=== PATIENT | male | born 1935 | race Caucasian/White ===

== ENCOUNTER 2017-11-03 07:03 | Emergency (ER) | payer MEDICARE ==
[2017-11-03 07:40] VITALS: BP 139/61
--- NOTE | 2017-11-03 07:51 | UC ---
FLU HPI - HPI Summary HPI Summary: 82 year old male with cough. Patient seen by PCP saturday for cough, nothing prescribed at the time. States continues to have a cough and headache. here with who is (+) flu A but his sx started a few days before hers [ End ] - History of Current Complaint Chief Complaint: UCRespiratory Stated Complaint: HEADACHE, COUGH, STOMACH ACHE Time Seen by Provider: 11/03/17 07:43 Hx Obtained From: Patient, Family/Police Chief Deputy Onset/Duration: Gradual Onset Severity Currently: Mild Pain Intensity: 5 Associated Signs & Symptoms: Positive: Negative, Cough, Headache - Allergy/Home Medications Allergies/Adverse Reactions: Allergies Allergy/AdvReac Type Severity Reaction Status Date / Time amitriptyline Allergy Unknown Verified 11/03/17 07:45 Reaction Details amoxicillin Allergy Itching Verified 11/03/17 07:45 gabapentin Allergy Hallucinati Verified 11/03/17 07:45 ons nortriptyline Allergy GI Upset Verified 11/03/17 07:45 Home Medications: Home Medications Antiarthritic Combination No.2 [Glucosamine Chondroitin D] 1 tab PO DAILY [History Confirmed 11/03/17] Cholecalciferol (Vitamin D3) [Vitamin D3] 1,000 unit PO DAILY 11/03/17 [History Confirmed 11/03/17] Finasteride TAB* [Proscar TAB*] 5 mg PO DAILY 11/03/17 [History Confirmed ] Lisinopril/HCTZ 10/12.5(NF) [Zestoretic 10/12.5(NF)] 1 tab PO DAILY 11/03/17 [ History Confirmed 11/03/17] Metoprolol Tartrate TAB* [Lopressor TAB*] 12.5 mg PO BID 11/03/17 [History Confirmed 11/03/17] Thiamine TAB* [Vitamin B-1 TAB*] 100 mg PO DAILY 11/03/17 [History Confirmed 12/18] amLODIPine TAB* [Norvasc 5 mg TAB*] 10 mg PO DAILY 11/03/17 [History Confirmed 11/03/17] tiZANidine TAB* [Zanaflex TAB*] 2 mg PO TID 11/03/17 [History Confirmed 11/03/17 ] PMH/Surg Hx/FS Hx/Imm Hx Previously Healthy: Yes Endocrine History: Dyslipidemia Cardiovascular History: Hypertension - Surgical History Surgical History: Yes Surgery Procedure, Year, and Place: 1961 RIGHT BELOW KNEE AMPUTATION R.\/ T LOGGING ACCIDENT, [facility]. 2010 LEFT HYDORCE[place] [facility] [place] [facility] [place]. 2010 CAUTERIZATION OF NOSE FOR NOSE BLEEDS [facility]. 1988 LITHOTRIPSY FOR KIDNEY STONE, [place]. 2009 DOUBLE HERNIA - Family History Known Family History: Positive: None - Social History Occupation: Retired Lives: With Family Alcohol Use: None Substance Use Type: None Smoking Status (MU): Never Smoked Tobacco Review of Systems Constitutional: Fatigue ENT: Nasal Discharge, Sinus Congestion Respiratory: Cough Musculoskeletal: Arthralgia Neurological: Headache Is Patient Immunocompromised?: No All Other Systems Reviewed And Are Negative: Yes Physical Exam Triage Information Reviewed: Yes Appearance: Well-Appearing, No Pain Distress, Well-Nourished, Ill-Appearing Vital Signs: Initial Vital Signs Temp 98.3 F 11/03/17 07:35 Pulse 71 11/03/17 07:35 Resp 18 11/03/17 07:35 BP 139/61 11/03/17 07:35 Pulse Ox 96 11/03/17 07:35 Vital Signs Reviewed: Yes Eye Exam: Normal ENT Exam: Normal Dental Exam: Normal Neck exam: Normal Neck: Positive: 1 Respiratory Exam: Normal Cardiovascular Exam: Normal Musculoskeletal Exam: Normal Neurological Exam: Normal Psychological Exam: Normal Skin Exam: Normal Flu Course/Dx - Course Course Of Treatment: with Flu A here -- his sx present for > 48 hours. xray shows NAD. supportive care. to go to ED if sx worsen. desires cough med for night time - Differential Dx/Diagnosis Differential Diagnosis/HQI/PQRI: Influenza, Upper Respiratory Infection Provider Diagnoses: Influenza Discharge - Discharge Plan Condition: Good Disposition: HOME Referrals: Alex Berkowitz MD [Primary Care Provider] -
--- NOTE | 2017-11-03 08:12 | RAD ---
INDICATION: Cough COMPARISON: May 25, 2015 TECHNIQUE: PA and lateral dual-energy views were obtained. FINDINGS: Bones/Soft Tissues: There are no acute bony findings. Cardiomediastinal: The cardiac silhouette is mildly enlarged, unchanged. Lungs: There are no infiltrates. Pleura: There are no pleural effusions. Other: None IMPRESSION: NO ACTIVE DISEASE.
== END 2017-11-03 08:45 | disposition home or self-care (01) ==
LOC: UCCORT 07:03
DX: J11.1 Influenza due to unidentified influenza virus with other respiratory manifestations (principal); Z20.828 Contact with and (suspected) exposure to other viral communicable diseases; Z88.0 Allergy status to penicillin; Z88.8 Allergy status to other drugs, medicaments and biological substances; I10 Essential (primary) hypertension
CPT/HCPCS: 71046; 87502; 99212; G0463

== ENCOUNTER 2019-01-17 07:45 | Emergency (ER) | payer MEDICARE ==
[2019-01-17 08:04] VITALS: BP 131/56
--- NOTE | 2019-01-17 08:29 | UC ---
Respiratory Complaint HPI - HPI Summary HPI Summary: 83 y/o male with 3 days hx of productive cough with yellow sputum, + nasal congestion , pnd, no sore throat, no fever, no chills , no weakness - History of Current Complaint Chief Complaint: UCRespiratory Stated Complaint: CHEST CONGESTION Time Seen by Provider: 01/17/19 08:13 Hx Obtained From: Patient Onset/Duration: Gradual Onset, Lasting Days - 3, Still Present Timing: Constant Severity Initially: Moderate Severity Currently: Moderate Pain Intensity: 0 Character: Cough: Productive Aggravating Factors: Exertion, Deep Breaths Alleviating Factors: Nothing Associated Signs And Symptoms: Positive: URI, Nasal Congestion. Negative: Dyspnea, Fever, Chills, Pleuritic Chest Pain, Wheezing, Hemoptysis, Dizziness, Calf Pain, Calf Swelling, Edema - Allergies/Home Medications Allergies/Adverse Reactions: Allergies Allergy/AdvReac Type Severity Reaction Status Date / Time amitriptyline Allergy Unknown Verified 01/17/19 08:07 Reaction Details amoxicillin Allergy Itching Verified 01/17/19 08:07 gabapentin Allergy Hallucinati Verified 01/17/19 08:07 ons nortriptyline Allergy GI Upset Verified 01/17/19 08:07 PMH/Surg Hx/FS Hx/Imm Hx - Additional Past Medical History Additional PMH: Hx of kidney enlarged prostate aneurysms ascending aorta arthritis right bk knee amp Cardiovascular History: Cardiac Disease, Hypertension, Pacemaker/ICD - Surgical History Surgical History: Yes Surgery Procedure, Year, and Place: 1961 RIGHT BELOW KNEE AMPUTATION R.\/ T LOGGING ACCIDENT, [facility]. 2010 [place] [facility] [place]. [place] [facility] [place]. 2010 CAUTERIZATION OF NOSE FOR NOSE. BLEEDS [facility]. 1988 LITHOTRIPSY FOR KIDNEY STONE [facility]. 2009 DOUBLE HERNIA. Pace maker. Cataracts b/l - Family History Known Family History: Positive: None, Diabetes - Social History Alcohol Use: None Substance Use Type: Marijuana Substance Use Comment - Amount & Last Used: medical- not using Smoking Status (MU): Never Smoked Tobacco Review of Systems All Other Systems Reviewed And Are Negative: Yes Constitutional: Positive: Negative Skin: Positive: Negative Eyes: Positive: Negative ENT: Positive: Nasal Discharge Respiratory: Positive: Cough Cardiovascular: Positive: Negative Is Patient Immunocompromised?: No Physical Exam Triage Information Reviewed: Yes Appearance: Well-Appearing, No Pain Distress, Well-Nourished Vital Signs: Initial Vital Signs Temp 98.3 F 01/17/19 08:00 Pulse 81 01/17/19 08:00 Resp 18 01/17/19 08:00 BP 131/56 01/17/19 08:00 Pulse Ox 97 01/17/19 08:00 Vital Signs Reviewed: Yes Eye Exam: Normal Eyes: Positive: Conjunctiva Clear ENT: Positive: Pharyngeal erythema, Nasal congestion, Nasal drainage, TMs normal. Negative: TM bulging, TM dull, TM red, Tonsillar swelling, Tonsillar exudate, Sinus tenderness Neck exam: Normal Neck: Positive: Supple, Nontender, No Lymphadenopathy Respiratory: Positive: Chest non-tender, Lungs clear, Normal breath sounds Cardiovascular: Positive: RRR, No Murmur, Pulses Normal Skin Exam: Normal Respiratory Course/Dx - Differential Dx/Diagnosis Provider Diagnosis: URI (upper respiratory infection) Discharge - Sign-Out/Discharge Documenting (check all that apply): Patient Departure All imaging exams completed and their final reports reviewed: No Studies - Discharge Plan Condition: Stable Disposition: HOME Patient Education Materials: Upper Respiratory Infection (DC) Referrals: Alex Berkowitz MD [Primary Care Provider] - If Needed - Billing Disposition and Condition Condition: STABLE Disposition: Home
== END 2019-01-17 08:32 | disposition home or self-care (01) ==
LOC: UCCORT 07:45
DX: J06.9 Acute upper respiratory infection, unspecified (principal); I10 Essential (primary) hypertension; Z95.0 Presence of cardiac pacemaker; Z88.8 Allergy status to other drugs, medicaments and biological substances; Z88.1 Allergy status to other antibiotic agents
CPT/HCPCS: 99212; G0463

== ENCOUNTER 2019-05-15 06:54 | Day surgery (SDC) | payer MEDICARE ==
--- NOTE | 2019-05-12 13:15 | HP ---
PREOPERATIVE HISTORY AND PHYSICAL: DATE OF ADMISSION/SURGERY: 05/15/19 - OR [facility] DATE OF OFFICE VISIT/ENCOUNTER: 04/23/19 ATTENDING SURGEON: Sruthi Sampson MD * (DICTATED BY YESSENIA NAGEL) LAB MANAGER: Dr. García. PROCEDURE: Left wrist carpal tunnel release. HISTORY OF PRESENT ILLNESS: This is an 84-year-old male who, in the past, has had a carpal tunnel release performed on the right. Currently, he is having similar symptoms in the left hand. He has trouble sleeping at night and is awakened with numbness, tingling, and pain. He would like to pursue a left carpal tunnel release. The symptoms have been getting progressively worse for the past 2 years. There has not been any recent injury. He has consented to proceed with surgery. He has a cardiac history and we will obtain medical clearance from his zmt operator, Dr. García, before proceeding with surgery. PAST MEDICAL HISTORY: 1. Aortic aneurysm. 2. Bicuspid valve disorder. 3. Hypertension. 4. Chronic neck pain. 5. Urinary retention. 6. 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 7. BPH. PAST SURGICAL HISTORY: 1. Right carpal tunnel release in 2012. 2. Nasal surgery. 3. Surgery for hydrocele. 4. Cystoscopy for bladder stones. 5. Right leg amputation in 1961. 6. Double hernia repair. 7. Bilateral cataract removal. 8. Pacemaker placement. CURRENT MEDICATIONS: 1. Saranya-[place] Heartburn 1 tab by mouth p.r.n. 2. Amlodipine besylate 10 mg daily. 3. Finasteride 5 mg daily. 4. Glucosamine/chondroitin 1500 Complex daily. 5. Lisinopril/hydrochlorothiazide 20/25 mg daily. 6. Metoprolol tartrate 25 mg half tab twice a day. 7. PreserVision AREDS 1 tab twice daily. 8. Tizanidine HCl 4 mg 1 tab q.6 hours p.r.n. neck pain. 9. Vitamin B12/folic acid daily. 10. Vitamin D high potency 1000 units daily. 11. Medical marijuana p.r.n. ALLERGIES: GABAPENTIN, AMOXICILLIN, AMITRIPTYLINE, NORTRIPTYLINE caused headache and blurry vision. FAMILY MEDICAL HISTORY: Diabetes, coronary vascular disease, and cancer. SOCIAL HISTORY: The patient is retired. He denies tobacco use. He denies recreational drug use, but does have a prescription for medical marijuana. He does not drink alcohol. REVIEW OF SYSTEMS: Negative for general, cephalic, cardiovascular, respiratory , GI, , other musculoskeletal, integumentary, endocrine, neurologic, and hematologic symptoms. Infectious Disease: Negative for MRSA, hepatitis C, HIV. PHYSICAL EXAMINATION GENERAL: A well-developed, well-nourished 84-year-old male, in no acute distress. VITAL SIGNS: Height 5 feet 7 inches, weight 171 pounds. Pulse rate 82, blood pressure 130/90. HEENT: Normocephalic, atraumatic. Pupils are equal, round, and reactive to light and accommodation. Extraocular movements are intact. Throat is clear. NECK: Supple. No palpable lymph nodes. PULMONARY: Lungs are clear to auscultation bilaterally. No wheezes, rales, or rhonchi. CARDIOVASCULAR: Regular rate and rhythm. S1, S2. No murmurs, rubs, or gallops. No edema. ABDOMEN: Positive bowel sounds. Soft, nontender. NEUROLOGICAL: Alert and oriented x3. Cranial nerves II through XII are intact. Sensation is intact to light touch. MUSCULOSKELETAL: On exam of his left hand, he has slight thenar wasting and some weakness with thumb abduction. He has markedly decreased sensation in his median nerve distribution to light touch, normal sensation in the ulnar nerve distribution. Positive median nerve compression test. Negative Tinel's sign at the ulnar nerve at the elbow. IMPRESSION: Left carpal tunnel syndrome. PLAN: The patient is scheduled to undergo a left wrist carpal tunnel release with Dr. Sampson on 05/15/19. He will return to the office 10 days postop for followup and suture removal. A prescription for Ultracet was e-scribed to the patient's pharmacy for postoperative pain management. We will receive medical clearance from his zmt operator prior to proceeding with surgery. YESSENIA NAGEL [id number]/[facility] #: [id number] LATASHA
[~2019-05-15 06:54] MED LIST: Buffered Lidocaine 1% SYRIN* 1 ML/SYRINGE INTRADERM ONE; Lactated Ringers 1000 ML Bag* 1,000 ML IV SCH
[2019-05-15] MEDS ORDERED: Lidocaine 1% INJ* 10 MG/ML 30 ML SDV ONE (08:18)
[2019-05-15] MEDS ORDERED: Naloxone* 0.4 MG/ML 1 ML VIAL IV PRN (08:43)
[2019-05-15] MEDS ORDERED: Propofol* 10 MG/ML 20 ML BTL ONE (08:46)
[2019-05-15] MEDS ORDERED: Lidocaine 2% PF * 5 ML VIAL ONE (08:46)
[2019-05-15 09:04] VITALS: BP 122/70
--- NOTE | 2019-05-15 14:00 | OP ---
DATE OF OPERATION: 05/15/19 [facility] DATE OF : 39 SURGEON: Sruthi Sampson MD SUPERVISOR BRINE: YESSENIA Newman ANESTHESIA: Local MAC. PRE-OP DIAGNOSIS: Left carpal tunnel syndrome. POST-OP DIAGNOSIS: Left carpal tunnel syndrome. OPERATIVE PROCEDURE: Left carpal tunnel release. ESTIMATED BLOOD LOSS: Zero. TOURNIQUET TIME: About 10 minutes. INDICATION FOR PROCEDURE: Kunal is an 84-year-old man with numbness and tingling in the median nerve distribution of his left hand. He presents for left carpal tunnel release. DESCRIPTION OF PROCEDURE: The patient was brought to the operating room and was given a sedation anesthetic and a local infiltration of 10 cc of 1% plain lidocaine in the palm of his left hand. The skin of his left hand and forearm was prepped and draped in the usual sterile fashion. The hand and forearm were exsanguinated and the tourniquet elevated to 250 mmHg. A longitudinal incision was made in the palm in line with the ring finger. We dissected through the subcutaneous tissue down to the transverse carpal ligament. The ligament was divided sharply with the knife and then more proximally with the scissors. The nerve was dissected free from the surrounding tissue and there was an area of significant compression at the mid portion of the ligament. The wound was irrigated and the skin edges were reapproximated with 4-0 nylon suture. The wound was dressed with Xeroform, 4x4, Webril, and an Gildardo wrap. The patient tolerated the procedure well and was brought to the recovery room in good condition. [id number]/[facility] #: [id number] [facility]
== END 2019-05-15 09:24 | disposition home or self-care (01) ==
LOC: OREAST 06:54
PROVIDERS: ATTEND Orthopaedic Surgery
DX: G56.02 Carpal tunnel syndrome, left upper limb (principal); I10 Essential (primary) hypertension; Z95.0 Presence of cardiac pacemaker; M19.90 Unspecified osteoarthritis, unspecified site; Q23.1 Congenital insufficiency of aortic valve; I71.9 Aortic aneurysm of unspecified site, without rupture
CPT/HCPCS: J2704